=== PATIENT | female | born 1950 | race Hispanic/Latino ===

== ENCOUNTER 2023-04-16 13:20 | Inpatient (IN) | payer MEDICARE, OTHER ==
[2023-04-16 15:28] LABS: #Monocytes 1.1 thou/uL (0.11-0.59); #Neutrophils 9.6 thou/uL (1.40-6.50); %Basophils 0.3 % (0.0-1.0); %Lymphocytes 9.1 % (21.0-51.0); %Monocytes 9.1 % (0.0-10.0); Hematocrit 31.7 % (36.0-47.0); Hemoglobin 10.9 g/dL (12.0-16.0); Mean Corpuscular HGB CONC 34.4 g/dL (32.0-36.0); Mean Corpuscular Hemoglobin 35.9 pg (27.0-31.0); Mean Corpuscular Volume 104.3 fl (78.0-98.0); Platelet Count 183 10x3/uL (130-400); RBC Distribution Width 14.2 % (11.5-14.5); Red Blood Cell (RBC) Count 3.04 mill/uL (4.20-5.40); White Blood Cell (WBC) Count 11.9 10x3/uL (4.8-10.8)
[2023-04-16 15:40] LABS: ALT (SGPT) 38 U/L (8-55); AST (SGOT) 111 U/L (5-34); Alkaline Phosphatase 312 U/L (40-110); Anion Gap 23 mmol/L (10-20); BUN (Urea Nitrogen) 29 mg/dL (9.8-20.1); Bilirubin, Total 4.6 mg/dL (0.2-1.2); Calc. Creatinine Clearance 0 mL/min (70-130); Calcium 8.5 mg/dL (7.8-10.44); Carbon Dioxide 15 mmol/L (23-31); Chloride 103 mmol/L (98-107); Estimated GFR 23; Globulin 3.1 g/dL (2.4-3.5); Glucose 73 mg/dL (83-110); Potassium 3.6 mmol/L (3.5-5.1); Protein, Total 6.1 g/dL (5.8-8.1); Sodium 137 mmol/L (136-145)
[2023-04-16 16:04] LABS: INR-International Normal Ratio 1.3; PTT 34.8 sec (22.9-36.1); Prothrombin Time 16.6 sec (12.0-14.7)
[2023-04-16 16:18] LABS: Troponin I 0.033 ng/mL (< 0.028)
[2023-04-16] MEDS ORDERED: Ondansetron ODT 4 MG TAB PO PRN (20:20)
[2023-04-16 21:54] LABS: Troponin I 0.047 ng/mL (< 0.028)
[2023-04-16 23:45] LABS: RBC Count-Automated (BF) 37 /cu.mm; WBC/Nucleated-Auto (BF) 260 /cu.mm
[2023-04-17] LABS: Fluid, Bilirubin Total 1.6 mg/dL (Not Available); Fluid, Protein 2.1 g/dL (Not Available)
[2023-04-17 00:22] LABS: HBCM Index 0.08 S/CO (0-0.79); Hep A IgM AB Non-Reactive S/CO (NonReactive); Hep A IgM S/CO 0.12 S/CO (0-0.79); Hep B Surf Ag Non-Reactive S/CO (NonReactive); Hep C IgG Ab Non-Reactive S/CO (NonReactive); Hepatitis B Core IgM Abs Non-Reactive S/CO (NonReactive)
[2023-04-17 01:12] LABS: BF Color Yellow; Body Fluid Source Ascites Body Fluid; Clarity Clear (Clear); Tube # EDTA
[2023-04-17 01:14] LABS: BF Segmented Neutrophils 28 %; Cell Count Non Hematic 65 %; Lymphocytes 7 %
[2023-04-17 03:56] LABS: #Basophils 0.1 thou/uL (0.0-0.2); #Monocytes 1.3 thou/uL (0.11-0.59); #Neutrophils 8.3 thou/uL (1.40-6.50); %Basophils 0.6 % (0.0-1.0); %Eosinophils 0.4 % (0.0-10.0); %Lymphocytes 11.7 % (21.0-51.0); %Monocytes 11.8 % (0.0-10.0); %Neutrophils 75.1 % (42.0-75.0); Hematocrit 29.1 % (36.0-47.0); Hemoglobin 10.3 g/dL (12.0-16.0); Mean Corpuscular HGB CONC 35.4 g/dL (32.0-36.0); Mean Corpuscular Hemoglobin 36.5 pg (27.0-31.0); Mean Corpuscular Volume 103.2 fl (78.0-98.0); Mean Platelet Volume 10.5 fL (7.4-10.4); Platelet Count 148 10x3/uL (130-400); RBC Distribution Width 13.9 % (11.5-14.5); Red Blood Cell (RBC) Count 2.82 mill/uL (4.20-5.40); White Blood Cell (WBC) Count 11.1 10x3/uL (4.8-10.8)
[2023-04-17 04:23] LABS: ALT (SGPT) 35 U/L (8-55); AST (SGOT) 101 U/L (5-34); Albumin 2.8 g/dL (3.4-4.8); Alkaline Phosphatase 306 U/L (40-110); Anion Gap 20 mmol/L (10-20); BUN (Urea Nitrogen) 28 mg/dL (9.8-20.1); Bilirubin, Total 4.7 mg/dL (0.2-1.2); Calc. Creatinine Clearance 35 mL/min (70-130); Calcium 8.2 mg/dL (7.8-10.44); Carbon Dioxide 17 mmol/L (23-31); Chloride 105 mmol/L (98-107); Estimated GFR 43; Globulin 2.9 g/dL (2.4-3.5); Glucose 91 mg/dL (83-110); Potassium 3.7 mmol/L (3.5-5.1); Protein, Total 5.7 g/dL (5.8-8.1); Sodium 138 mmol/L (136-145)
[2023-04-17] MEDS ORDERED: cefTRIAXone\\ROCEPHIN 1 GM in Sodium Chloride 0.9% 100 ML IVPB SCH (07:00)
[2023-04-17] MEDS ORDERED: Atorvastatin Calcium 20 MG TAB ONE (08:35)
[2023-04-17] MEDS ORDERED: Heparin 5,000 UNITS/ML VIAL ONE (08:43)
[2023-04-17] MEDS ORDERED: Electrolyte Replacement Protocol 1 EACH FS SCH (09:30)
[2023-04-17] MEDS ORDERED: Electrolyte Replacement Protocol FS PRN (09:30)
[2023-04-17] MEDS: Heparin 5,000 UNITS/ML VIAL SC SCH (09:40)
[2023-04-17] MEDS: Atorvastatin Calcium 20 MG TAB PO SCH (09:40)
[2023-04-17] MEDS: Thiamine HCl 200 MG/2 ML VIAL SLOW IVP SCH (09:40)
[2023-04-17] MEDS ORDERED: Thiamine HCl 200 MG/2 ML VIAL ONE (09:41)
[2023-04-17 11:27] LABS: Hemoglobin A1c 4.6 % (4.0-6.0)
[2023-04-17 11:45] LABS: Acetaminophen Less than 10 mcg/mL (10.0-30.0); Salicylate Less than 8.0 mg/dL (15.0-30.0)
[2023-04-17 12:41] LABS: Amphetamine Not Detected (NotDetected); Barbiturates Screen Not Detected (NotDetected); Benzodiazepine Screen Not Detected (NotDetected); Cocaine Metabolite Screen Not Detected (NotDetected); Methadone Not Detected (NotDetected); Methamphetamine Not Detected (NotDetected); Opiate Screen Not Detected (NotDetected); Oxycodone Screen Not Detected (NotDetected); Phencyclidine (PCP) Not Detected (NotDetected); THC/Cannabinoid Screen Not Detected (NotDetected); Tricyclic Screen Not Detected (NotDetected)
[2023-04-17 13:09] LABS: HIV (1/2) Antibody/Antigen Reflxed Confirmation (NonReactive); HIV 1/2 INDEX 2.22 S/CO (<1.00)
[2023-04-17 19:28] LABS: Bacteria/HPF 1+ HPF (None Seen); Bilirubin Negative (Negative); Blood, Urine Negative (Negative); CAUTI Indications for Culture < 2yrs of age; Clarity Turbid (Clear); Glucose, Urine (Dipstick) Normal (Negative); Ketone, Urine Negative (Negative); Leukocyte Negative Leu/uL (Negative); Nitrite Negative (Negative); Protein, Urine (Dipstick) 20 mg/dL (Neg-Trace); RBC/HPF 0-3 HPF (0-3); Specific Gravity, Urine 1.013 (1.002-1.036); Urobilinogen Normal mg/dL (Less than 2); WBC/HPF 0-3 HPF (0-3); pH, Urine 5.5 (5.0-9.0)
[2023-04-17 19:30] LABS: Urine Culture Reflex Yes Yes
[2023-04-17] MEDS: Lactulose 20 GM (30 mL) UDCUP PO SCH (21:22)
[2023-04-18] MEDS ORDERED: Furosemide 20 MG (2 mL) VIAL SLOW IVP SCH (07:15)
[2023-04-18] MEDS ORDERED: Spironolactone 25 MG TAB PO SCH (08:00)
[2023-04-18] MEDS: Multivit, Therapeutic 1 TAB PO SCH (08:43)
[2023-04-18] MEDS: Folic Acid 1 MG TAB PO SCH (08:43)
[2023-04-18 13:57] LABS: #Basophils 0.1 thou/uL (0.0-0.2); #Eosinphils 0.1 thou/uL (0.0-0.7); #Monocytes 0.8 thou/uL (0.11-0.59); #Neutrophils 6.6 thou/uL (1.40-6.50); %Basophils 0.6 % (0.0-1.0); %Eosinophils 0.8 % (0.0-10.0); %Lymphocytes 16.3 % (21.0-51.0); %Monocytes 8.5 % (0.0-10.0); %Neutrophils 73.4 % (42.0-75.0); Hemoglobin 10.4 g/dL (12.0-16.0); Mean Corpuscular HGB CONC 35.9 g/dL (32.0-36.0); Mean Corpuscular Hemoglobin 36.9 pg (27.0-31.0); Mean Corpuscular Volume 102.8 fl (78.0-98.0); Mean Platelet Volume 10.6 fL (7.4-10.4); Platelet Count 131 10x3/uL (130-400); RBC Distribution Width 14.2 % (11.5-14.5); Red Blood Cell (RBC) Count 2.82 mill/uL (4.20-5.40)
[2023-04-18 14:23] LABS: Immunoglob - G (Total IgG) 1330 mg/dL (552-1631); Immunoglob - M (Total IgM) 122 mg/dL (33-293)
[2023-04-18 14:24] LABS: ALT (SGPT) 36 U/L (8-55); AST (SGOT) 110 U/L (5-34); Albumin 2.7 g/dL (3.4-4.8); Alkaline Phosphatase 310 U/L (40-110); Anion Gap 14 mmol/L (10-20); BUN (Urea Nitrogen) 16 mg/dL (9.8-20.1); Bilirubin, Total 5.6 mg/dL (0.2-1.2); Calc. Creatinine Clearance 56 mL/min (70-130); Calcium 8.3 mg/dL (7.8-10.44); Carbon Dioxide 22 mmol/L (23-31); Chloride 107 mmol/L (98-107); Estimated GFR 78; Glucose 135 mg/dL (83-110); Iron 43 ug/dL (50-170); Iron Binding Capacity, Total 88 mcg/dL (265-497); Potassium 2.9 mmol/L (3.5-5.1); Protein, Total 5.7 g/dL (5.8-8.1); Sodium 140 mmol/L (136-145)
[2023-04-18] MEDS: Potassium Chloride 20 MEQ TAB PO SCH ×2 (17:32→22:13)
[2023-04-18] MEDS: Magnesium Oxide 400 MG TAB PO SCH (17:32)
[2023-04-18] MEDS: Potassium Chloride 20 MEQ in Premix 1 BAG IVPB SCH (17:33)
[2023-04-18 18:18] LABS: Magnesium 1.5 mg/dL (1.6-2.6)
[2023-04-19 05:03] LABS: #Basophils 0.1 thou/uL (0.0-0.2); #Eosinphils 0.2 thou/uL (0.0-0.7); #Monocytes 0.7 thou/uL (0.11-0.59); #Neutrophils 6.2 thou/uL (1.40-6.50); %Basophils 0.6 % (0.0-1.0); %Eosinophils 2.3 % (0.0-10.0); %Lymphocytes 16.4 % (21.0-51.0); %Monocytes 8.4 % (0.0-10.0); %Neutrophils 71.8 % (42.0-75.0); Hematocrit 27.8 % (36.0-47.0); Hemoglobin 9.9 g/dL (12.0-16.0); Mean Corpuscular HGB CONC 35.6 g/dL (32.0-36.0); Mean Corpuscular Hemoglobin 36.5 pg (27.0-31.0); Mean Corpuscular Volume 102.6 fl (78.0-98.0); Mean Platelet Volume 10.6 fL (7.4-10.4); Platelet Count 123 10x3/uL (130-400); RBC Distribution Width 14.5 % (11.5-14.5); Red Blood Cell (RBC) Count 2.71 mill/uL (4.20-5.40); White Blood Cell (WBC) Count 8.6 10x3/uL (4.8-10.8)
[2023-04-19 05:26] LABS: ALT (SGPT) 33 U/L (8-55); AST (SGOT) 105 U/L (5-34); Albumin 2.5 g/dL (3.4-4.8); Alkaline Phosphatase 281 U/L (40-110); Anion Gap 12 mmol/L (10-20); BUN (Urea Nitrogen) 11 mg/dL (9.8-20.1); Bilirubin, Total 4.8 mg/dL (0.2-1.2); Calc. Creatinine Clearance 64 mL/min (70-130); Calcium 8.3 mg/dL (7.8-10.44); Carbon Dioxide 23 mmol/L (23-31); Chloride 111 mmol/L (98-107); Estimated GFR 92; Globulin 2.8 g/dL (2.4-3.5); Glucose 97 mg/dL (83-110); Magnesium 1.3 mg/dL (1.6-2.6); Potassium 3.7 mmol/L (3.5-5.1); Protein, Total 5.3 g/dL (5.8-8.1); Sodium 142 mmol/L (136-145)
[2023-04-19 06:26] VITALS: BMI 23.1
[2023-04-19] MEDS ORDERED: PROPOFOL 20 ML ONE (11:01)
[2023-04-19] MEDS: Magnesium Sulfate In Water 4 GM in Premix 1 BAG IVPB SCH (13:24)
[2023-04-19 15:47] VITALS: BP 107/64; TEMP 98.1
[2023-04-20] MEDS ORDERED: Thiamine 100 MG TAB PO SCH (09:00)
[2023-04-20 20:37] LABS: HIV 1 Antibody Multi-Spot Non Reactive (Non Reactive); HIV 2 Antibody Multi-Spot Non Reactive (Non Reactive); HIV Multi-spot Interp Negative (.)
[2023-04-21 13:24] LABS: ANA Symphony (Qualitative) Negative (Negative); ANA Symphony (Quantitative) 0.2 Ratio (< 0.7 Negative); dsDNA IgG Antibody 1.6 IU/mL (<10 Negative)
[2023-04-21 14:34] LABS: EliA Vaculitis New Method **** NEW METHOD ****; Mitochondrial Ab 0.9 U/mL (<4 Negative)
== END 2023-04-19 18:15 | disposition home or self-care (01) | DRG 433 ==
LOC: ERS 13:20 → ERHOLD 17:51 → 2SW 04-17 14:11 → OBSVTOIN 04-18 10:52
PROVIDERS: ADMIT Family Medicine; ATTEND Family Medicine
PROC: 0W9G3ZZ Drainage of Peritoneal Cavity, Percutaneous Approach (ICD-10-PCS; 2023-04-16)
PROC: 0DJ08ZZ Inspection of Upper Intestinal Tract, Via Natural or Artificial Opening Endoscopic (ICD-10-PCS; principal; 2023-04-19)
DX: K70.31 Alcoholic cirrhosis of liver with ascites (principal); E87.20 Acidosis, unspecified; N17.9 Acute kidney failure, unspecified; K76.6 Portal hypertension; K75.81 Nonalcoholic steatohepatitis (NASH); K76.82 Hepatic encephalopathy; I95.9 Hypotension, unspecified; E16.2 Hypoglycemia, unspecified; I10 Essential (primary) hypertension; E78.5 Hyperlipidemia, unspecified; M19.90 Unspecified osteoarthritis, unspecified site; H81.10 Benign paroxysmal vertigo, unspecified ear; K21.9 Gastro-esophageal reflux disease without esophagitis; Z88.5 Allergy status to narcotic agent; Z79.899 Other long term (current) drug therapy; D53.9 Nutritional anemia, unspecified; Z90.710 Acquired absence of both cervix and uterus; Z90.89 Acquired absence of other organs; Z90.49 Acquired absence of other specified parts of digestive tract; Z21 Asymptomatic human immunodeficiency virus [HIV] infection status; E87.6 Hypokalemia; F17.210 Nicotine dependence, cigarettes, uncomplicated; K31.89 Other diseases of stomach and duodenum; R94.31 Abnormal electrocardiogram [ECG] [EKG]
CPT/HCPCS: 36415; 71045; 74176; 76705; 80053; 80074; 80143; 80179; 80306; 81001; 82042; 82103; 82105; 82140; 82150; 82247; 82390; 82570; 82607; 82728; 82945; 82977; 83036; 83516; 83540; 83550; 83615; 83735; 83880; 84157; 84484; 84540; 85025; 85060; 85610; 85730; 86015; 86038; 86225; 86701; 86702; 87070; 87086; 87205; 87389; 88112; 88305; 89051; 93005; 93306; 96372; 96374; 96376; 80307; G0378; J1644; J2704; J3411; J3475; J3480

== ENCOUNTER 2023-05-14 16:09 | Outpatient (CLI) | payer MEDICARE | END 2023-05-14 16:10 | disposition home or self-care (01) | LOC: BICRAD 16:09 | PROVIDERS: ATTEND Physician Assistant Medical | DX: R18.8 Other ascites (principal); K74.60 Unspecified cirrhosis of liver; D72.829 Elevated white blood cell count, unspecified; R60.0 Localized edema; K76.82 Hepatic encephalopathy | CPT/HCPCS: 71046; 81001 ==

== ENCOUNTER 2023-05-29 12:21 | Day surgery (SDC) | payer MEDICARE ==
[2023-05-29 12:54] LABS: INR-International Normal Ratio 1.6; Prothrombin Time 18.9 sec (12.0-14.7)
[2023-05-29] MEDS ORDERED: Lidocaine 1% PF 5 ML VIAL ONE (12:56)
[2023-05-29 16:03] VITALS: BMI 19.1
[2023-05-29 17:19] LABS: RBC Count-Automated (BF) 50 /cu.mm; WBC/Nucleated-Auto (BF) 112 /cu.mm
[2023-05-29 17:21] LABS: BF Color Yellow; Body Fluid Source Ascites Body Fluid; Clarity Clear (Clear); Tube # EDTA
[2023-05-29 18:02] LABS: BF Segmented Neutrophils 12 %; Cell Count Non Hematic 61 %; Lymphocytes 27 %
== END 2023-05-29 14:45 | disposition home or self-care (01) ==
LOC: ULT 12:21
PROVIDERS: ATTEND Physician Assistant Medical
PROC: 0W9G3ZZ Drainage of Peritoneal Cavity, Percutaneous Approach (ICD-10-PCS; principal; 2023-05-29)
DX: K74.60 Unspecified cirrhosis of liver (principal); R18.8 Other ascites; D72.829 Elevated white blood cell count, unspecified; Z88.5 Allergy status to narcotic agent
CPT/HCPCS: 36415; 49083; 85060; 85610; 85730; 87070; 87205; 89051

== ENCOUNTER 2023-07-19 18:22 | Inpatient (IN) | payer MEDICARE ==
[2023-07-19] MEDS ORDERED: Calcium Carbonate 500 MG ChewTAB PO PRN (22:08)
[2023-07-19] MEDS ORDERED: Ondansetron PF 4 MG/2 ML Vial IVP PRN (22:08)
[2023-07-19] MEDS ORDERED: Ondansetron ODT 4 MG TAB PO PRN (22:08)
[2023-07-19] MEDS: Thiamine 100 MG TAB PO SCH (23:54)
[2023-07-19] MEDS: Albumin 25% 25 GM (100 mL) BOT IVPB SCH (23:55)
[2023-07-20] MEDS: cefTRIAXone\\ROCEPHIN 2 GM in Sodium Chloride 0.9% 100 ML IVPB SCH (02:10)
[2023-07-20 02:38] LABS: Bilirubin Moderate (Negative); Blood, Urine Small (Negative); Glucose, Urine (Dipstick) Negative (Negative); Ketone, Urine Trace mg/dL (Negative); Leukocyte Negative (Negative); Nitrite Negative (Negative); Protein, Urine (Dipstick) 30 mg/dL (Neg-Trace); pH, Urine 5.5 (5.0-9.0)
[2023-07-20 02:39] LABS: Clarity Clear (Clear)
[2023-07-20 02:43] LABS: Bacteria/HPF 4+ HPF (None Seen); CAUTI Indications for Culture Alt mental st,lethar; Specific Gravity, Urine 1.025 (1.002-1.036); Squamous Epithelial 0-3 HPF (0-3); WBC/HPF 21-50 HPF (0-3)
[2023-07-20 02:45] LABS: Urine Culture Reflex Yes Yes
[2023-07-20 05:32] LABS: #Basophils Less than 0.03 10x3/uL (0.0-0.2); %Basophils 0.1 % (0.0-1.0); %Eosinophils 0.9 % (0.0-10.0); %Lymphocytes 17.9 % (21.0-51.0); %Monocytes 10.4 % (0.0-10.0); %Neutrophils 70.2 % (42.0-75.0); Hematocrit 26.2 % (36.0-47.0); Hemoglobin 9.4 g/dL (12.0-16.0); Mean Corpuscular HGB CONC 35.9 g/dL (32.0-36.0); Mean Corpuscular Hemoglobin 30.5 pg (27.0-31.0); Mean Corpuscular Volume 85.1 fL (78.0-98.0); Mean Platelet Volume 11.1 fL (7.4-10.4); Platelet Count 103 10x3/uL (130-400); RBC Distribution Width 19.1 % (11.5-14.5); Red Blood Cell (RBC) Count 3.08 mill/uL (4.20-5.40)
[2023-07-20 05:38] LABS: Lactic Acid 1.3 mmol/L (0.5-2.2)
[2023-07-20 05:45] LABS: ALT (SGPT) 44 U/L (8-55); AST (SGOT) 67 U/L (5-34); Albumin 1.7 g/dL (3.4-4.8); Alkaline Phosphatase 147 U/L (40-110); Anion Gap 13 mmol/L (10-20); BUN (Urea Nitrogen) 22 mg/dL (9.8-20.1); Bilirubin, Total 3.2 mg/dL (0.2-1.2); Calc. Creatinine Clearance 30 mL/min (70-130); Calcium 7.6 mg/dL (7.8-10.44); Carbon Dioxide 14 mmol/L (23-31); Chloride 105 mmol/L (98-107); Estimated GFR 30; Globulin 3.3 g/dL (2.4-3.5); Glucose 80 mg/dL (83-110); Potassium 4.4 mmol/L (3.5-5.1); Sodium 128 mmol/L (136-145)
[2023-07-20] MEDS: Atorvastatin Calcium 20 MG TAB PO SCH (08:56)
[2023-07-20] MEDS: Lactulose 20 GM (30 mL) UDCUP PO SCH (08:56)
[2023-07-20] MEDS: Folic Acid 1 MG TAB PO SCH (08:56)
[2023-07-20] MEDS: Pantoprazole DR 40 MG TAB PO SCH (08:56)
[2023-07-20] MEDS: Multivit, Therapeutic 1 TAB PO SCH (08:57)
[2023-07-20] MEDS ORDERED: Furosemide 20 MG TAB PO SCH (09:00)
[2023-07-20] MEDS ORDERED: Lactulose 20 GM (30 mL) UDCUP PO SCH (09:00)
[2023-07-20] MEDS ORDERED: Furosemide 40 MG (4 mL) VIAL SLOW IVP SCH (09:00)
[2023-07-20] MEDS: Furosemide 20 MG (2 mL) VIAL SLOW IVP SCH ×2 (10:20→15:02)
[2023-07-20] MEDS ORDERED: Methyl Salicylate/Menthol 85 GM TUBE TOP PRN (10:58)
[2023-07-20 14:40] LABS: Sodium 129 mmol/L (136-145)
[2023-07-21 01:22] VITALS: BMI 25.4
[2023-07-21 04:40] LABS: ALT (SGPT) 39 U/L (8-55); AST (SGOT) 63 U/L (5-34); Albumin 2.5 g/dL (3.4-4.8); Alkaline Phosphatase 142 U/L (40-110); Anion Gap 16 mmol/L (10-20); BUN (Urea Nitrogen) 23 mg/dL (9.8-20.1); Bilirubin, Total 3.5 mg/dL (0.2-1.2); Calc. Creatinine Clearance 29 mL/min (70-130); Calcium 8.1 mg/dL (7.8-10.44); Carbon Dioxide 15 mmol/L (23-31); Chloride 104 mmol/L (98-107); Estimated GFR 30; Globulin 2.8 g/dL (2.4-3.5); Glucose 89 mg/dL (83-110); Potassium 3.9 mmol/L (3.5-5.1); Protein, Total 5.3 g/dL (5.8-8.1); Sodium 131 mmol/L (136-145)
[2023-07-21 04:56] LABS: #Basophils Less than 0.03 10x3/uL (0.0-0.2); %Eosinophils 1.5 % (0.0-10.0); %Lymphocytes 19.1 % (21.0-51.0); %Monocytes 11.2 % (0.0-10.0); %Neutrophils 67.8 % (42.0-75.0); Hematocrit 26.6 % (36.0-47.0); Hemoglobin 10.1 g/dL (12.0-16.0); Mean Corpuscular Hemoglobin 30.2 pg (27.0-31.0); Mean Corpuscular Volume 79.6 fL (78.0-98.0); Mean Platelet Volume 10.3 fL (7.4-10.4); Platelet Count 107 10x3/uL (130-400); RBC Distribution Width 18.6 % (11.5-14.5); Red Blood Cell (RBC) Count 3.34 mill/uL (4.20-5.40)
[2023-07-21] MEDS: Furosemide 40 MG (4 mL) VIAL SLOW IVP SCH (11:17)
[2023-07-21] MEDS ORDERED: Lidocaine 1% PF 5 ML VIAL ONE (14:17)
[2023-07-21] MEDS ORDERED: Sodium Bicarbonate 2.5 MEQ/5 ML SDV ONE (14:18)
[2023-07-21] MEDS: Lactulose 20 GM (30 mL) UDCUP PO SCH (15:08)
[2023-07-21 16:49] LABS: RBC Count-Automated (BF) 262 /cu.mm; WBC/Nucleated-Auto (BF) 196 /cu.mm
[2023-07-21 16:59] LABS: BF Color Yellow; Body Fluid Source Ascites Body Fluid; Clarity Clear (Clear); Tube # EDTA
[2023-07-21 17:45] LABS: BF Segmented Neutrophils 45 %; Cell Count Non Hematic 32 %; Lymphocytes 23 %
[2023-07-22 04:38] LABS: #Basophils Less than 0.03 10x3/uL (0.0-0.2); %Basophils 0.2 % (0.0-1.0); %Lymphocytes 22.1 % (21.0-51.0); %Monocytes 11.2 % (0.0-10.0); Hematocrit 29.5 % (36.0-47.0); Hemoglobin 10.7 g/dL (12.0-16.0); Mean Corpuscular HGB CONC 36.3 g/dL (32.0-36.0); Mean Corpuscular Hemoglobin 29.6 pg (27.0-31.0); Mean Corpuscular Volume 81.7 fL (78.0-98.0); Platelet Count 130 10x3/uL (130-400); RBC Distribution Width 19.2 % (11.5-14.5); Red Blood Cell (RBC) Count 3.61 mill/uL (4.20-5.40)
[2023-07-22 04:46] LABS: INR-International Normal Ratio 2.2; Prothrombin Time 24.2 sec (12.0-14.7)
[2023-07-22 04:47] LABS: PTT 53.9 sec (22.9-36.1)
[2023-07-22 04:50] LABS: ALT (SGPT) 41 U/L (8-55); AST (SGOT) 73 U/L (5-34); Albumin 2.1 g/dL (3.4-4.8); Alkaline Phosphatase 171 U/L (40-110); Anion Gap 14 mmol/L (10-20); BUN (Urea Nitrogen) 22 mg/dL (9.8-20.1); Bilirubin, Total 3.3 mg/dL (0.2-1.2); Calc. Creatinine Clearance 32 mL/min (70-130); Calcium 8.3 mg/dL (7.8-10.44); Carbon Dioxide 15 mmol/L (23-31); Chloride 104 mmol/L (98-107); Estimated GFR 35; Globulin 2.8 g/dL (2.4-3.5); Glucose 105 mg/dL (83-110); Potassium 3.7 mmol/L (3.5-5.1); Protein, Total 4.9 g/dL (5.8-8.1); Sodium 129 mmol/L (136-145)
[2023-07-22] MEDS: Furosemide 20 MG (2 mL) VIAL SLOW IVP SCH (11:25)
[2023-07-23 04:22] LABS: #Basophils Less than 0.03 10x3/uL (0.0-0.2); %Basophils 0.1 % (0.0-1.0); %Lymphocytes 22.5 % (21.0-51.0); %Monocytes 12.6 % (0.0-10.0); %Neutrophils 63.4 % (42.0-75.0); Hematocrit 28.5 % (36.0-47.0); Hemoglobin 10.7 g/dL (12.0-16.0); Mean Corpuscular HGB CONC 37.5 g/dL (32.0-36.0); Mean Corpuscular Hemoglobin 30.7 pg (27.0-31.0); Mean Corpuscular Volume 81.7 fL (78.0-98.0); Mean Platelet Volume 11.2 fL (7.4-10.4); Platelet Count 120 10x3/uL (130-400); RBC Distribution Width 18.8 % (11.5-14.5); Red Blood Cell (RBC) Count 3.49 mill/uL (4.20-5.40)
[2023-07-23 04:34] LABS: ALT (SGPT) 45 U/L (8-55); AST (SGOT) 77 U/L (5-34); Albumin 1.9 g/dL (3.4-4.8); Alkaline Phosphatase 185 U/L (40-110); Anion Gap 12 mmol/L (10-20); BUN (Urea Nitrogen) 24 mg/dL (9.8-20.1); Bilirubin, Total 3.4 mg/dL (0.2-1.2); Calc. Creatinine Clearance 28 mL/min (70-130); Calcium 8.1 mg/dL (7.8-10.44); Carbon Dioxide 18 mmol/L (23-31); Chloride 102 mmol/L (98-107); Estimated GFR 34; Globulin 3.1 g/dL (2.4-3.5); Glucose 122 mg/dL (83-110); Potassium 3.8 mmol/L (3.5-5.1); Sodium 128 mmol/L (136-145)
[2023-07-23] MEDS: Furosemide 20 MG TAB PO SCH (09:08)
[2023-07-23 15:27] LABS: INR-International Normal Ratio 1.9; Prothrombin Time 22.3 sec (12.0-14.7)
[2023-07-23 15:28] LABS: PTT 53.1 sec (22.9-36.1)
[2023-07-23] MEDS: Lactulose 20 GM (30 mL) UDCUP PO SCH (16:12)
[2023-07-24 04:12] LABS: #Basophils Less than 0.03 10x3/uL (0.0-0.2); %Basophils 0.2 % (0.0-1.0); %Eosinophils 1.2 % (0.0-10.0); %Lymphocytes 23.5 % (21.0-51.0); %Monocytes 11.1 % (0.0-10.0); %Neutrophils 63.8 % (42.0-75.0); Hematocrit 29.7 % (36.0-47.0); Hemoglobin 10.7 g/dL (12.0-16.0); Mean Corpuscular Hemoglobin 30.2 pg (27.0-31.0); Mean Corpuscular Volume 83.9 fL (78.0-98.0); Mean Platelet Volume 10.6 fL (7.4-10.4); Platelet Count 106 10x3/uL (130-400); RBC Distribution Width 19.1 % (11.5-14.5); Red Blood Cell (RBC) Count 3.54 mill/uL (4.20-5.40)
[2023-07-24 04:19] LABS: INR-International Normal Ratio 1.7; Prothrombin Time 20.3 sec (12.0-14.7)
[2023-07-24 04:20] LABS: PTT 52.3 sec (22.9-36.1)
[2023-07-24 04:39] LABS: ALT (SGPT) 48 U/L (8-55); AST (SGOT) 88 U/L (5-34); Albumin 1.8 g/dL (3.4-4.8); Alkaline Phosphatase 213 U/L (40-110); Anion Gap 13 mmol/L (10-20); BUN (Urea Nitrogen) 27 mg/dL (9.8-20.1); Bilirubin, Total 3.5 mg/dL (0.2-1.2); Calc. Creatinine Clearance 26 mL/min (70-130); Calcium 8.1 mg/dL (7.8-10.44); Carbon Dioxide 16 mmol/L (23-31); Chloride 101 mmol/L (98-107); Estimated GFR 31; Globulin 3.3 g/dL (2.4-3.5); Glucose 114 mg/dL (83-110); Protein, Total 5.1 g/dL (5.8-8.1); Sodium 126 mmol/L (136-145)
[2023-07-24] MEDS: Albumin 25% 25 GM (100 mL) BOT IVPB SCH (09:49)
[2023-07-24] MEDS ORDERED: Albumin 25% 25 GM (100 mL) BOT IVPB SCH (12:00)
[2023-07-24 18:46] LABS: ALT (SGPT) 38 U/L (8-55); AST (SGOT) 74 U/L (5-34); Albumin 2.8 g/dL (3.4-4.8); Alkaline Phosphatase 177 U/L (40-110); Anion Gap 14 mmol/L (10-20); BUN (Urea Nitrogen) 31 mg/dL (9.8-20.1); Bilirubin, Total 3.3 mg/dL (0.2-1.2); Calc. Creatinine Clearance 25 mL/min (70-130); Calcium 8.5 mg/dL (7.8-10.44); Carbon Dioxide 16 mmol/L (23-31); Chloride 100 mmol/L (98-107); Estimated GFR 29; Globulin 2.5 g/dL (2.4-3.5); Glucose 128 mg/dL (83-110); Potassium 4.1 mmol/L (3.5-5.1); Protein, Total 5.3 g/dL (5.8-8.1); Sodium 126 mmol/L (136-145)
[2023-07-25 04:10] LABS: #Basophils Less than 0.03 10x3/uL (0.0-0.2); %Basophils 0.1 % (0.0-1.0); %Eosinophils 1.6 % (0.0-10.0); %Lymphocytes 25.4 % (21.0-51.0); %Monocytes 14.8 % (0.0-10.0); %Neutrophils 57.7 % (42.0-75.0); Hematocrit 24.2 % (36.0-47.0); Mean Corpuscular HGB CONC 37.2 g/dL (32.0-36.0); Mean Corpuscular Hemoglobin 29.5 pg (27.0-31.0); Mean Corpuscular Volume 79.3 fL (78.0-98.0); Mean Platelet Volume 11.2 fL (7.4-10.4); Platelet Count 80 10x3/uL (130-400); RBC Distribution Width 18.4 % (11.5-14.5); Red Blood Cell (RBC) Count 3.05 mill/uL (4.20-5.40)
[2023-07-25 04:16] LABS: INR-International Normal Ratio 1.9; Prothrombin Time 22.2 sec (12.0-14.7)
[2023-07-25 04:19] LABS: PTT 57.6 sec (22.9-36.1)
[2023-07-25 04:31] LABS: ALT (SGPT) 34 U/L (8-55); AST (SGOT) 68 U/L (5-34); Albumin 3.2 g/dL (3.4-4.8); Alkaline Phosphatase 162 U/L (40-110); Anion Gap 16 mmol/L (10-20); BUN (Urea Nitrogen) 32 mg/dL (9.8-20.1); Calc. Creatinine Clearance 25 mL/min (70-130); Calcium 8.4 mg/dL (7.8-10.44); Carbon Dioxide 17 mmol/L (23-31); Chloride 98 mmol/L (98-107); Estimated GFR 29; Globulin 2.2 g/dL (2.4-3.5); Glucose 120 mg/dL (83-110); Potassium 3.8 mmol/L (3.5-5.1); Protein, Total 5.4 g/dL (5.8-8.1); Sodium 127 mmol/L (136-145)
[2023-07-25 12:19] VITALS: BP 108/58; TEMP 97.3
== END 2023-07-25 15:57 | disposition hospice, home (50) | DRG 432 ==
LOC: 2SE 21:17 → INTOOBSV 21:17 → UNDOADMOB 21:17 → INTOOBSV 07-20 10:47 → 2SE 07-20 10:47 → OBSVTOIN 07-20 10:47 → INTOOBSV 07-23 17:13 → OBSVTOIN 07-23 17:13 → UNDODISIN 07-25 15:57
PROVIDERS: ADMIT Family Medicine; ATTEND Family Medicine
PROC: 30233J1 Transfusion of Nonautologous Serum Albumin into Peripheral Vein, Percutaneous Approach (ICD-10-PCS; 2023-07-19)
PROC: 0W9G3ZZ Drainage of Peritoneal Cavity, Percutaneous Approach (ICD-10-PCS; principal; 2023-07-21)
DX: K70.31 Alcoholic cirrhosis of liver with ascites (principal); K76.7 Hepatorenal syndrome; S06.6XAA Traumatic subarachnoid hemorrhage with loss of consciousness status unknown, initial encounter; E87.1 Hypo-osmolality and hyponatremia; J90 Pleural effusion, not elsewhere classified; N17.9 Acute kidney failure, unspecified; K76.82 Hepatic encephalopathy; Z51.5 Encounter for palliative care; Z66 Do not resuscitate; R26.81 Unsteadiness on feet; M19.90 Unspecified osteoarthritis, unspecified site; E78.5 Hyperlipidemia, unspecified; I10 Essential (primary) hypertension; K21.9 Gastro-esophageal reflux disease without esophagitis; F17.210 Nicotine dependence, cigarettes, uncomplicated; R53.81 Other malaise; D64.9 Anemia, unspecified; F10.90 Alcohol use, unspecified, uncomplicated; R74.01 Elevation of levels of liver transaminase levels; W18.30XA Fall on same level, unspecified, initial encounter; E88.09 Other disorders of plasma-protein metabolism, not elsewhere classified; D69.6 Thrombocytopenia, unspecified; Z88.5 Allergy status to narcotic agent; Z79.899 Other long term (current) drug therapy; Z90.710 Acquired absence of both cervix and uterus; Z90.49 Acquired absence of other specified parts of digestive tract; Z90.89 Acquired absence of other organs; R53.1 Weakness; I48.91 Unspecified atrial fibrillation; Y93.01 Activity, walking, marching and hiking
CPT/HCPCS: 36415; 36416; 49083; 70450; 71250; 72125; 74018; 80053; 80307; 81001; 82042; 82140; 83605; 83735; 83880; 83930; 83935; 84145; 84157; 84300; 84484; 85025; 85060; 85610; 85730; 87040; 87086; 89051; 93005; 93306; 96374; 96375; 96376; G0378; J0696; J1940; J3010; J3490; P9047